=== PATIENT | male | born 1970 | race Caucasian/White ===

== ENCOUNTER 2020-02-03 12:03 | Emergency (ER) | payer BC ==
[2020-02-03 12:17] VITALS: BP 148/89; PULSE 92; O2SAT 96
--- NOTE | 2020-02-03 12:24 | ERPHSYRPT ---
- History of Present Illness Time Seen by Provider: 02/03/20 12:12 Source: patient Exam Limitations: no limitations Patient Subjective Stated Complaint: Right ankle injury Triage Nursing Assessment: Patient brought back to ED via w/c and transferred self to bed. Patient A+O X 3. Patient's skin pink, warm and dry. Patient complains or right ankle pain after stepping off of a golf cart causing his foot to turn and twist this am around midnight. Patient states he heard a pop. Patient's right ankle noted to be swollen. Patient complains of constant dull pain when sitting 5/10 and when standing constant sharp pain 10/10. Physician History: This's a 49 yr old healthy pt. c/o right ankle pain x 2 days - states he injured his right ankle yesterday when he got of his golf cart- denies fall, states he twisted his ankle outwards, developed immediate pain and heard a pop - was able to ambulate with some difficulty - rates pain at 5/10 at rest, 12/10 with ambulation, increases with ambulation, decreases with rest, non-radiating, denies tingling or numbness. - pt. did not apply ice pack or use tyelnol/ibuprofen or any other meds -lives in [place] with PCP in [place], is here camping. - denies any other symptoms. Method of Injury: twisted Occurred: yesterday Quality: constant Severity of Pain-Max: moderate Severity of Pain-Current: moderate Lower Extremities Pain: ankle: right Modifying Factors: Improves With: immobilization, movement Associated Symptoms: other (bears weight with some difficulty) Allergies/Adverse Reactions: No Known Drug Allergies Allergy (Unverified 02/03/20 12:08) Hx Influenza Vaccination/Date Given: No Hx Pneumococcal Vaccination/Date Given: No Immunizations Up to Date: Yes Travel Risk - International Travel Have you traveled outside of the country in past 3 weeks: No - Coronavirus Screening Are you exhibiting any of the following symptoms?: No Close contact with a COVID-19 positive Pt in past 14-21 Days: No - Review of Systems Constitutional: No Symptoms Eyes: No Symptoms Ears, Nose, & Throat: No Symptoms Respiratory: No Symptoms Cardiac: No Symptoms Abdominal/Gastrointestinal: No Symptoms Genitourinary Symptoms: No Symptoms Musculoskeletal: Joint Pain, Joint Swelling Skin: No Symptoms Neurological: No Symptoms Psychological: No Symptoms Endocrine: No Symptoms All Other Systems: Reviewed and Negative - Past Medical History Pertinent Past Medical History: Yes Neurological History: No Pertinent History ENT History: No Pertinent History Cardiac History: Hypertension Respiratory History: No Pertinent History Endocrine Medical History: No Pertinent History Musculoskeletal History: No Pertinent History GI Medical History: No Pertinent History History: No Pertinent History Psycho-Social History: No Pertinent History Male Reproductive Disorders: No Pertinent History Other Medical History: Hemocromotosis - Past Surgical History Past Surgical History: No Neuro Surgical History: No Pertinent History Cardiac: No Pertinent History Respiratory: No Pertinent History Gastrointestinal: No Pertinent History Genitourinary: No Pertinent History Musculoskeletal: No Pertinent History Male Surgical History: No Pertinent History - Social History Smoking Status: Never smoker Exposure to second hand smoke: No Drug Use: none Patient Lives Alone: Yes - Nursing Vital Signs Nursing Vital Signs: Initial Vital Signs Temperature 98.6 F 02/03/20 12:09 Pulse Rate 92 H 02/03/20 12:09 Respiratory Rate 19 02/03/20 12:09 Blood Pressure 148/89 02/03/20 12:09 O2 Sat by Pulse Oximetry 96 02/03/20 12:09 Pain Scale Pain Intensity 10 - Physical Exam General Appearance: no apparent distress Eyes, Ears, Nose, Throat Exam: normal ENT inspection, TMs normal, pharynx normal Neck Exam: normal inspection, non-tender, supple, full range of motion Cardiovascular/Respiratory Exam: chest non-tender, normal breath sounds, regular rate/rhythm, heart sounds normal Gastrointestinal/Abdominal Exam: non-tender, no organomegaly Back Exam: normal inspection, normal range of motion, No CVA tenderness, No vertebral tenderness Hips Exam: bilateral: non-tender, normal inspection, normal range of motion, no evidence of injury Legs Exam: bilateral leg: non-tender, normal inspection, normal range of motion, no evidence of injury Knees Exam: bilateral knee: non-tender, normal inspection, normal range of motion, no evidence of injury Ankle Exam: right ankle: bone tenderness (of lateral malleolus), limited range of motion (pain with extension, adduction and abduction.), left ankle: non- tender, normal inspection, normal range of motion, no evidence of injury Foot Exam: bilateral foot: non-tender, normal inspection, normal range of motion, no evidence of injury DTR - Lower Extremities Exam: knee (R): 4+, knee (L): 4+, ankle (R): 4+, ankle (L): 4+ Neuro/Tendon Exam: normal sensation, normal motor functions, normal tendon functions, responds to pain, no evidence tendon injury, No motor deficit, No sensory deficit Mental Status Exam: alert, oriented x 3, cooperative Skin Exam: normal color SpO2 Interpretation: normal SpO2: 96 O2 Delivery: Room Air (negative squeeze test, negative external rotation test, negative anterior drawer test) - Radiology Exams Right Ankle X-ray Interpretation: Interpreted by me (No evidence of fracture) Ordered Tests: Active Orders 24 hr Category Date Time Status Splint STAT Care 02/03/20 12:40 Ordered ANKLE (3 VIEWS) Stat Exams 02/03/20 Ordered - Progress Progress Note: Is a 49-year-old patient presenting to the ED for evaluation of right ankle pain vital Signs stable on arrival Icepack applied to the area, patient refused pain medications X-rays of the ankle reviewed and shows no acute fracture Will be placed in a walking boot to help with ambulation, advised on NEREIDA, offered ortho clinic f/u in am- pt. refised, plans to f/u with PCP in [place] for further investigations like MRI if needed and PT. Does not want pain meds, advised to alternate tylenol with ibuprofen 02/03/20 12:38 02/03/20 12:44 02/03/20 12:47 - Departure Departure Disposition: Home Clinical Impression: Right ankle sprain Condition: Stable Critical Care Time: No Instructions: Ankle Sprain (DC) Additional Instructions: Discharge/Care Plan SUGAR IZAGUIRRE was seen on 02/03/20 in the Emergency Room. The patient was counseled regarding Diagnosis,Lab results, Imaging studies, need for follow up and when to return to the Emergency Room. Prescriptions given: Discharge Note I have spoken with the patient and/or caregivers. I have explained the patient's condition, diagnosis and treatment plan based on the information available to me at this time. I have answered the patient's and/or caregiver's questions and addressed any concerns. The patient and/or caregivers have as good understanding of the patient's diagnosis, condition and treatment plan as can be expected at this point. The vital signs have been stable. The patient's condition is stable and appropriate for discharge from the emergency department. The patient will pursue further outpatient evaluation with the primary care physician or other designated or consulting physician as outlined in the discharge instructions. The patient and/or caregivers are agreeable to this plan of care and follow-up instructions have been explained in detail. The patient and/or caregivers have received these instruction. The patient/and or caregivers are aware that any significant change in condition or worsening of symptoms should prompt an immediate return to this or the closest emergency department or call 911.
--- NOTE | 2020-02-03 19:31 | XRAY ---
Indication: Pain following injury. Comparison: None 3 view right ankle demonstrates small plantar heel spur and mild anterolateral soft tissue swelling. No other bony, articular, or soft tissue abnormalities.
== END 2020-02-03 12:51 | disposition home or self-care (01) ==
LOC: ED 12:03
DX: S93.401A Sprain of unspecified ligament of right ankle, initial encounter (principal); X50.0XXA Overexertion from strenuous movement or load, initial encounter
CPT/HCPCS: 73610; 99283; L4386